=== PATIENT | female | born 1940 | race Hispanic/Latino ===

== ENCOUNTER → 2018-02-11 | Outpatient (CLI) | payer OTHER ==
[~2018-02-11] MED LIST: APIX5TAB PO; ATOR10 PO; INSU3INS3 SQ; METO100T14 PO; PENT400T12 PO; ROPI1TAB11 PO
== END | disposition home or self-care (01) ==
LOC: SHCH 12:50
PROVIDERS: ATTEND Internal Medicine Cardiovascular Disease
DX: I87.2 Venous insufficiency (chronic) (peripheral) (principal); I73.9 Peripheral vascular disease, unspecified
CPT/HCPCS: 93925; 93970